=== PATIENT | male | born 1995 | race Native Hawaiian/Other Pacific Islander ===

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

== ENCOUNTER 2019-04-17 17:18 | Emergency (ER) | payer BC ==
[2019-04-17] MEDS ORDERED: Diph,Pert(Acell),Tet Vac 0.5 ML SYR IM ONE (17:41)
--- NOTE | 2019-04-17 17:49 | Emergency Department Record ---
History of Present Illness - General Chief complaint: Lower Extremity Pain Stated complaint: LAC L TOE/TWISTED ANKLE AND KNEE Time Seen by Provider: 04/17/19 17:36 Source: Patient, RN notes reviewed Mode of Arrival: Ambulatory - History of Present Illness Initial comments: laceration of the left toe on a trampoline flexer surface Location: Left, Ankle, Foot, Knee History of Same: No Severity scale (1-10): 4 Quality: Aching Consistency: Constant Improves with: Nothing Worsens with: Nothing Associated Symptoms: Denies other symptoms - Related Data Home Medications Medication Instructions Recorded Confirmed Last Taken No Home Med [NO HOME MEDS] 04/17/19 04/17/19 Unknown Allergies Allergy/AdvReac Type Severity Reaction Status Date / Time No Known Drug Allergies Allergy Verified 04/17/19 17:26 Travel Screening - Travel/Exposure Within Last 30 Days Have you traveled within the last 30 days?: No Review of Systems Reviewed: No additional complaints except as noted below Constitutional: Reports: As per HPI. Denies: Chills, Fever, Malaise, Night sweats, Weakness, Weight change Eyes: Reports: As per HPI. Denies: Eye discharge, Eye pain, Photophobia, Vision change ENT: Reports: As per HPI. Denies: Congestion, Dental pain, Ear pain, Epistaxis, Hearing loss, Throat pain Respiratory: Reports: As per HPI. Denies: Cough, Dyspnea, Hemoptysis, Stridor, Wheezes Cardiovascular: Reports: As per HPI. Denies: Arrhythmia, Chest pain, Dyspnea on exertion, Edema, Murmurs, Orthopnea, Palpitations, Paroxysmal nocturnal dyspnea, Rheumatic Fever, Syncope Endocrine: Reports: As per HPI. Denies: Fatigue, Heat or cold intolerance, Kyle ydipsia, Polyuria Gastrointestinal: Reports: As per HPI. Denies: Abdominal pain, Constipation, Diarrhea, Hematemesis, Hematochezia, Melena, Nausea, Vomiting Genitourinary: Reports: As per HPI. Denies: Dysuria, Frequency, Hematuria, Incontinence, Retention, Testicular pain, Testicular mass, Urgency Musculoskeletal: Reports: As per HPI, Other (ankle and knee pain). Denies: Arthralgia, Back pain, Gout, Joint swelling, Myalgia, Neck pain Skin: Reports: As per HPI. Denies: Bruising, Change in color, Change in hair/nails, Lesions, Pruritus, Rash Neurological: Reports: As per HPI. Denies: Abnormal gait, Confusion, Headache, Numbness, Paresthesias, Seizure, Tingling, Tremors, Vertigo, Weakness Psychiatric: Reports: As per HPI. Denies: Anxiety, Auditory hallucinations, Depression, Homicidal thoughts, Suicidal thoughts, Visual hallucinations Hematological/Lymphatic: Reports: As per HPI. Denies: Anemia, Blood Clots, Easy bleeding, Easy bruising, Swollen glands Past Medical History - SOCIAL HISTORY Smoking Status: Never smoker Alcohol Use: None Drug Use: None - RESPIRATORY Hx Respiratory Disorders: No - CARDIOVASCULAR Hx Cardio Disorders: No - NEURO Hx Neuro Disorders: No - GI Hx GI Disorders: No - Hx Genitourinary Disorders: No - ENDOCRINE Hx Endocrine Disorders: No - MUSCULOSKELETAL Hx Musculoskeletal Disorders: No - PSYCH Hx Psych Problems: No - HEMATOLOGY/ONCOLOGY Hx Hematology/Oncology Disorders: No Family Medical History Any Significant Family History?: Yes Hx Anxiety: Father Hx Depression: Father, Grandparents Physical Exam - General General Appearance: Alert, Oriented x3, Cooperative, No acute distress - Head Head exam: Normal inspection - Eye Eye exam: Normal appearance, PERRL Pupils: Normal accommodation - ENT ENT exam: Normal exam, Mucous membranes moist, Normal external ear exam, Normal orophraynx, TM's normal bilaterally Ear exam: Normal external inspection. negative: External canal tenderness Nasal Exam: Normal inspection. negative: Discharge, Sinus tenderness Mouth exam: Normal external inspection, Tongue normal Teeth exam: Normal inspection. negative: Dental caries Throat exam: Normal inspection. negative: Tonsillar erythema, Tonsillar exudate - Neck Neck exam: Normal inspection, Full ROM. negative: Tenderness - Respiratory Respiratory exam: Normal lung sounds bilaterally. negative: Respiratory distress - Cardiovascular Cardiovascular Exam: Regular rate, Normal rhythm, Normal heart sounds - GI/Abdominal GI/Abdominal exam: Soft, Normal bowel sounds. negative: Tenderness - Rectal Rectal exam: Deferred - exam: Deferred - Extremities Extremities exam: Normal inspection, Full ROM, Normal capillary refill, Tenderness (left ankle and left knee), Other (laceration 5 cm left great toe) - Back Back exam: Reports: Normal inspection, Full ROM. Denies: Muscle spasm, Rash noted, Tenderness - Neurological Neurological exam: Alert, Normal gait, Oriented X3, Reflexes normal - Psychiatric Psychiatric exam: Normal affect, Normal mood - Skin Skin exam: Dry, Intact, Normal color, Warm Course Vital Signs 04/17/19 17:21 Temperature 99.4 F Pulse Rate 103 H Respiratory 20 Rate Blood Pressure 133/81 Pulse Ox 97 - Reevaluation(s) Reevaluation #1: 1% lidocaine for anestesia and cleaned wound with surclense and repaired laceration with five sutures . laceration 5 cm long 04/17/19 17:46 04/17/19 17:47 04/17/19 18:27 Reevaluation #2: explored laceration and no FB and he had good ROM of his great toe flexion and extension with good strength with flexion. explored the laceration and tendon is intact. cleaned and flushed the laceration with surclens and saline 04/17/19 18:28 Reevaluation #3: patient states he already has crutches and he said he is able to hop on his good too. 04/17/19 18:46 Medical Decision Making - Data Complexity MDM Data: X-Ray Ordered and/or Reviewed (no fractures seen) Disposition Clinical Impression: Laceration of great toe of left foot Qualifiers: Encounter type: initial encounter Damage to nail status: without damage Foreign body presence: without foreign body Qualified Code(s): S91.112A - Laceration without foreign body of left great toe without damage to nail, initial encounter Sprained ankle Qualifiers: Encounter type: initial encounter Involved ligament of ankle: unspecified ligament Laterality: left Qualified Code(s): S93.402A - Sprain of unspecified ligament of left ankle, initial encounter Disposition: Home, Self-Care Condition: (1) Good Instructions: Laceration (ED) Additional Instructions: sutures out in 10 days watch for infection motrin or ibuprofin three OTC pills three times a day Forms: Patient Portal Access Time of Disposition: 18:41 Quality - Quality Measures Quality Measures: N/A - Blood Pressure Screening Does Patient Have Any of the Following: No Blood Pressure Classification: Pre-Hypertensive BP Reading Systolic Measurement: 133 Diastolic Measurement: 81 Screening for High Blood Pressure: < Pre-Hypertensive BP, F/U Documented > [G8950] Pre-Hypertensive Follow-up Interventions: Referral to alternative/primary care provider.
--- NOTE | 2019-04-20 06:27 | RADIOLOGY REPORT ---
EXAM: LEFT ANKLE HISTORY: PATIENT HAS A HISTORY OF INJURY. TECHNIQUE: Three views of the left ankle are provided without comparison examinations. FINDINGS: There is no radiographic evidence of a fracture or dislocation of the left ankle. No significant soft tissue abnormalities are visualized. The anterior tibiotalar fat pad is unremarkable. IMPRESSION: UNREMARKABLE PLAIN FILM RADIOGRAPH OF THE LEFT ANKLE. JOB NUMBER: [id number] MTDD
--- NOTE | 2019-04-20 06:30 | RADIOLOGY REPORT ---
EXAM: LEFT FOOT, THREE VIEWS HISTORY: PATIENT HAS A HISTORY OF INJURY. TECHNIQUE: Three views of the left foot are provided without comparison examinations. FINDINGS: There is no radiographic evidence of a fracture or dislocation of the left foot. No significant soft tissue abnormalities are visualized. No radiopaque foreign bodies are identified. An accessory ossicle is noted adjacent to the navicular. IMPRESSION: UNREMARKABLE PLAIN FILM RADIOGRAPH OF THE LEFT FOOT. JOB NUMBER: [id number] MTDD
--- NOTE | 2019-04-20 06:32 | RADIOLOGY REPORT ---
EXAM: LEFT KNEE HISTORY: PATIENT HAS A HISTORY OF INJURY. TECHNIQUE: Three views of the left knee are provided without comparison examinations. FINDINGS: There is no radiographic evidence of a fracture or dislocation of the left knee. No significant soft tissue abnormalities are visualized. No radiopaque foreign bodies are identified. No significant suprapatellar bursal fluid is noted. IMPRESSION: UNREMARKABLE PLAIN FILM RADIOGRAPH OF THE LEFT KNEE. JOB NUMBER: [id number] MTDD
== END 2019-04-17 19:00 | disposition home or self-care (01) ==
LOC: ER 17:18
DX: S91.112A Laceration without foreign body of left great toe without damage to nail, initial encounter (principal); S93.402A Sprain of unspecified ligament of left ankle, initial encounter; Y93.44 Activity, trampolining; Y92.9 Unspecified place or not applicable; Y99.9 Unspecified external cause status
CPT/HCPCS: 12002; 90715; 96372; 99284